=== PATIENT | female | born 1975 | race Caucasian/White ===

== ENCOUNTER 2024-02-21 00:05 | Emergency (ER) | payer MEDICAID ==
[~2024-02-21] VITALS: Ht 175.3 cm; Wt 109.1 kg
[2024-02-21 00:20] VITALS: TEMP 99
[2024-02-21] MEDS ORDERED: NS 1,000 ML IV ONE (01:00)
[2024-02-21] MEDS ORDERED: Morphine 4 MG/ML VIAL IV PRN (01:00)
[2024-02-21 01:14] LABS: BASO # 0.1 K/mm3 (0.0-0.2); BASO % 0.6 % (0.0-2.0); EOS # 0.1 K/mm3 (0.0-0.7); EOS % 1.5 % (0.0-4.0); GRAN # 4.3 K/mm3 (1.4-6.5); GRAN % 52.4 % (42.2-75.2); HEMATOCRIT 43.6 % (37.0-47.0); HEMOGLOBIN 14.6 g/dl (12.5-16.0); LYMPH # 3.2 K/mm3 (1.2-3.4); LYMPH % 38.6 % (20.0-51.0); MEAN CELL VOLUME 94 fl (80.0-100.0); MEAN CORPUSCULAR HEMOGLOBIN 31 pg (27-31); MEAN CORPUSCULAR HGB CONC 34 g/dl (33.0-37.0); MEAN PLATELET VOLUME 10.5 fl (7.4-10.4); MONO # 0.6 K/mm3 (0.1-0.6); MONO % 6.7 % (1.7-9.3); PLATELET COUNT 287 K/mm3 (130-400); RED BLOOD COUNT 4.65 M/mm3 (4.10-5.30); REDCELL DISTRIBUTION WIDTH-CV 12.9 % (11.5-14.5)
[2024-02-21] MEDS ORDERED: methylPREDNISolone Sod Succ 125 MG/2 ML VIAL IV ONE (01:15)
[2024-02-21] MEDS ORDERED: Ondansetron 4 MG/2 ML VIAL IV ONE (01:15)
[2024-02-21] MEDS ORDERED: diphenhydrAMINE 50 MG/ML 1 ML VIAL IV ONE (01:15)
[2024-02-21 01:21] LABS: PH 5.5 (5.0-8.5); URINE APPEARANCE CLEAR (CLEAR/HAZY); URINE BLOOD NEGATIVE (NEGATIVE); URINE COLOR YELLOW (YELLOW); URINE GLUCOSE NEGATIVE (NEGATIVE); URINE KETONE NEGATIVE (NEGATIVE); URINE NITRATE NEGATIVE (NEGATIVE); URINE PROTEIN(semi-quant) NEGATIVE (NEGATIVE); URINE UROBILINOGEN 0.2 E.U/dL (0.2-1.0)
[2024-02-21 01:26] LABS: ALBUMIN 4.4 g/dL (3.5-5.0); BILIRUBIN,TOTAL 0.7 mg/dL (0.2-1.2); CALCIUM 9.9 mg/dL (8.4-10.2); CREATININE, serum 0.8 mg/dL (0.57-1.11); POTASSIUM 3.8 mEq/L (3.5-4.5); TOTAL PROTEIN 8.2 g/dl (6.2-8.1)
[2024-02-21 01:39] LABS: COLLECTION METHOD CLEAN CATCH
[2024-02-21] MEDS ORDERED: Iohexol 300 - 100 ML VIAL IV ONE (02:14)
[2024-02-21] MEDS ORDERED: NS 50 ML IV SCH (02:14)
[2024-02-21] MEDS ORDERED: PHENERGAN 25 TA25 MG PO (03:28)
[2024-02-21] MEDS ORDERED: NORCO 325 MG-51 TAB PO (03:28)
[2024-02-21 03:57] VITALS: BP 138/94; PULSE 64
== END 2024-02-21 03:57 | disposition home or self-care (01) ==
LOC: COL.ER 00:05
PROVIDERS: Personal Emergency Response Attendant
DX: R10.31 Right lower quadrant pain (principal); R11.0 Nausea
CPT/HCPCS: J1200; J2270; J2405; J2919; J7030; Q9967

== ENCOUNTER 2024-04-03 17:56 | Emergency (ER) | payer MEDICAID ==
[~2024-04-03] VITALS: Ht 175.3 cm; Wt 111.4 kg
[~2024-04-03 17:56] MED LIST: NORCO 325 MG-51 TAB PO; PHENERGAN 25 TA25 MG PO
[2024-04-03 18:12] VITALS: BP 163/110; TEMP 99
[2024-04-03] MEDS ORDERED: Doxycycline Monohydrate 100 MG CAP PO ONE (19:00)
[2024-04-03] MEDS ORDERED: Cephalexin 500 MG CAP PO ONE (19:00)
[2024-04-03] MEDS ORDERED: NORCO 325 MG-51 TAB PO (19:01)
[2024-04-03] MEDS ORDERED: CEPHALEXIN500 M1 PO (19:01)
[2024-04-03] MEDS ORDERED: DOXYCYCLINE 10100 MG PO (19:01)
[2024-04-03 19:25] VITALS: PULSE 88
== END 2024-04-03 19:25 | disposition home or self-care (01) ==
LOC: COL.ER 17:56
DX: L03.211 Cellulitis of face (principal)